=== PATIENT | female | born 1985 | race Caucasian/White ===

== ENCOUNTER 2025-08-25 05:49 | Day surgery (SDC) | payer BC ==
[2025-08-23 15:27] VITALS: BMI 23.3
[2025-08-25] MEDS ORDERED: Gabapentin 300 MG CAP ONE (06:25)
[2025-08-25] MEDS ORDERED: Famotidine/PF 20 mg/2ml Vial ONE (06:26)
[2025-08-25] MEDS ORDERED: metroNIDAZOLE 500 MG (100 mL) BAG ONE (06:26)
[2025-08-25] MEDS ORDERED: Bupivacaine HCl 0.5%/Epinephrine 1:200,000/PF 30 ml Vial ONE (07:02)
[2025-08-25] MEDS ORDERED: CEFAZOLIN 2 GM VIAL ONE (07:02)
[2025-08-25] MEDS ORDERED: Rocuronium Bromide 10 MG/ML (10ML VIAL) ONE (07:04)
[2025-08-25] MEDS ORDERED: PROPOFOL 40 ML ONE (07:04)
[2025-08-25] MEDS ORDERED: Lidocaine 2% PF 100 mg/5 ml Syringe ONE (07:04)
[2025-08-25] MEDS ORDERED: Lidocaine 1% (PF) 30 ML VIAL ONE (07:04)
[2025-08-25] MEDS ORDERED: Ondansetron PF 4 MG/2 ML Vial ONE (07:05)
[2025-08-25] MEDS ORDERED: SUGAMMADEX SODIUM 200 MG/2 ML VIAL ONE (07:05)
[2025-08-25] MEDS ORDERED: SUCCINYLCHOLINE/SOD CL,ISO/PF 200 MG/10 ML SYRINGE FS ONE (07:06)
[2025-08-25] MEDS ORDERED: PHENYLEPHRINE-NS 100 MCG/ML 10 ML SYRINGE ONE (07:06)
[2025-08-25] MEDS ORDERED: Scopolamine 1 mg/72 hour Patch ONE (07:11)
[2025-08-25 07:21] LABS: Hematocrit 39.5 % (34.9-44.5); Hemoglobin 13.1 g/dL (12.0-15.5); Mean Corpuscular Hemoglobin 31.7 pg (27.0-33.0); Mean Corpuscular Volume 95.6 fL (81.6-98.3); Platelet Count 306 10x3/uL (150-450); Red Blood Cell (RBC) Count 4.13 10x6/uL (3.90-5.03); White Blood Cell (WBC) Count 6.53 10x3/uL (3.5-10.5)
[2025-08-25] MEDS ORDERED: Ketorolac Tromethamine 30 MG (1 mL) VIAL ONE (08:08)
[2025-08-25] MEDS ORDERED: HYDROmorphone 0.5 MG/0.5 ML SYRINGE ONE (09:53)
[2025-08-25] MEDS ORDERED: HYDROcodone/Acetaminophen 5/325 mg Tablet ONE (10:19)
== END 2025-08-25 11:42 | disposition home or self-care (01) ==
LOC: CSHSDC 05:49
PROVIDERS: ATTEND Obstetrics & Gynecology
PROC: 0UT97ZZ Resection of Uterus, Via Natural or Artificial Opening (ICD-10-PCS; principal; 2025-08-25)
DX: N80.03 Adenomyosis of the uterus (principal); Z91.040 Latex allergy status; Z91.018 Allergy to other foods; Z87.891 Personal history of nicotine dependence; Z85.3 Personal history of malignant neoplasm of breast
CPT/HCPCS: 84702; 85027; 86850; 86900; 86901; 88307; 88342; J1100; J1171; J1308; J1642; J1885; J2003; J2250; J2405; J2704; J3010; S2900